=== PATIENT | female | born 1960 | race Two or more races ===

== ENCOUNTER 2024-10-31 06:40 | Emergency (ER) | payer MEDICAID ==
[~2024-10-31] VITALS: Ht 157.5 cm; Wt 89.5 kg
[2024-10-31 07:11] VITALS: BP 139/57; PULSE 83; RESP 18; TEMP 97.7; O2SAT 94
--- NOTE | 2024-10-31 07:21 | ED.PDOC ---
Phillip. trauma (HPI) HPI Comments A 64-YEAR-OLD FEMALE PRESENTS WITH A CHIEF COMPLAINT OF NECK PAIN AND CHEST WALL PAIN S/P FALL. PATIENT STATES THAT SHE FELL ON SUNDAY (10/28/2024) AND FELL BACKWARDS WITH HER CHIN HITTING HER STERNUM AND HER NECK HITTING THE FLOOR. PATIENT DENIES ANY LOC. PATIENT REPORTS THAT HER PAIN IS LOCALIZED TO HER CERVICAL/THORACIC SPINE, AND HER STERNAL REGION. NO BRUISING NOTED. PATIENT DENIES ANY FEVER, HEADACHE, SOB, ABDOMINAL PAIN, CHEST PAIN, OR COUGH. NO OTHER SYMPTOMS OR MODIFYING FACTORS PRESENT AT THIS TIME. Chief Complaint: Fall Injury Time Seen by MD: 07:14 Reviewed notes: Medications, Allergies Home Meds Active Scripts Methocarbamol (Methocarbamol) 750 Mg Tab, 750 MG PO BID, #20 TAB Prov:LESLY RAO 10/31/24 Ibuprofen (Ibuprofen) 800 Mg Tab, 1 TAB PO TID, #30 TAB Prov:ELSLY RAO 10/31/24 Information Source: Patient Mode of Arrival: Ambulatory Brought in by: AMBULATORY Severity: Moderate Timing: Days Duration: Since onset Prehospital treatment: None Location: Chest, Neck (T-SPINE AND C-SPINE) Location of laceration: None Mechanism: Fall Associated signs and symtoms: None Past Medical History PAST MEDICAL HISTORY: Denies Surgical History: Denies all surgeries BARGE PILOT History: Denies all BARGE PILOT Hx Family History Family History: Reviewed,noncontributory to illness Social History Smoker: Non-Smoker Alcohol: Denies ETOH Use Drugs: Denies Drug Use Lives In: Home Constitutional: denies: chills, diaphoresis, fatigue, fever, malaise, sweats, weakness, others EENTM: denies: blurred vision, double vision, ear bleeding, ear discharge, ear drainage, ear pain, ear ringing, eye pain, eye redness, hearing loss, mouth pain, mouth swelling, nasal discharge, nose bleeding, nose congestion, nose pain, photophobia, tearing, throat pain, throat swelling, voice changes, others Respiratory: denies: cough, hemoptysis, orthopnea, SOB at rest, shortness of breath, SOB with excertion, stridor, wheezing, others Cardiovascular: denies: chest pain, dizzy spells, diaphoresis, Dyspnea on exertion, edema, irregular heart beat, left arm pain, lightheadedness, palpitations, PND, syncope, others Gastrointestinal: denies: abdomen distended, abdominal pain, blood streaked bowels, constipated, diarrhea, dysphagia, difficulty swallowing, hematemesis, melena, nausea, poor appetite, poor fluid intake, rectal bleeding, rectal pain, vomiting, others Genitourinary: denies: abnormal vagina bleeding, burning, dyspareunia, dysuria, flank pain, frequency, hematuria, incontinence, pain, , vagina discharge, urgency, others Neurological: denies: dizziness, fainting, headache, left sided numbness, left sided weakness, numbness, paresthesia, pre-existing deficit, right sided numbness, right sided weakness, seizure, speech problems, tingling, tremors, weakness, others Musculoskeletal: reports: muscle pain, neck pain; denies: back pain, gout, joint pain, joint swelling, muscle stiffness, others Integumetry: denies: bruises, change in color, change in hair/nails, dryness, laceration, lesions, lumps, rash, wounds, others Allergic/Immunocompromised: denies: Difficulty Healing, Frequent Infections, Hives, Itching, others Hematologic/Lymphatic: denies: anemia, blood clots, easy bleeding, easy bruising, swollen glands, others Endocrine: denies: excessive hunger, excessive sweating, excessive thirst, excessive urination, flushing, intolerance to cold, intolerance to heat, unexplained weight gain, unexplained weight loss, others Psychiatric: denies: anxiety, bipolar disorder, depression, hopeless, panic d isorder, schizophrenia, sleepless, suicidal, others All Other Systems: Reviewed and Negative Physical Exam General Appearance: No Apparent Distress, Normal HEENT: Normal ENT Inspection, PERRL/EOMI, Pharynx Normal, TMs Normal Neck: Full Range of Motion, Normal Inspection, Supple, Tender Lateral (TENDERNESS AND MUSCLE SPAS ON POSTERIOR NECK, NO BONY TENDERNESS, SWELLING AND DEFORMITY. ) Respiratory: Lungs Clear, No Accessory Muscle Use, No Respiratory Distress, Normal Breath Sounds, Other (TENDERNESS UPPER CHEST WALL, NO BONY TENDERNESS, SWELLING AND DEFORMITY. ) Cardiovascular: No Edema, No JVD, No Murmur, No Gallop, Normal Peripheral Pulses, Regular Rate/Rhythm Breast Exam: Deferred Gastrointestinal: No Organomegaly, Non Tender, No Pulsatile Mass, Normal Bowel Sounds, Soft Genitalia: Deferred Pelvic: Deferred Rectal: Deferred Extremities: No calf tenderness, Normal capillary refill, Normal inspection, Normal range of motion, Non-tender, No pedal edema Musculoskeletal : Location: Bilateral Extremity Location: Back Apperance: Tenderness (AND MUSCLE SPASM ON UPPER BACK, NO BONY TENDERNESS, SWELLING AND DEFORMITY. ) Neurologic: Alert, pillow cleaner II-XII nml as Tested, No Motor Deficits, Normal Affect, Normal Mood, No Sensory Deficits Cerebellar Function: Normal Reflexes: Normal Skin: Dry, Normal Color, Warm Peripheral Pulses: 2+ carotid (R), 2+ carotid (L), 2+ Radial (R), 2+ Radial (L) Lymphatic: No Adenopathy Was a procedure done? Was a procedure done?: No Differential Diagnosis Multiple Trauma: Fractures, Spine Injury, Abrasions, Contusion Neck Injury: Cervical Muscle Spasm X-Ray, Labs, Meds, VS Vital Signs Date Time Temp Pulse Resp B/P (MAP) Pulse Ox O2 Delivery O2 Flow Rate FiO2 10/31/24 07:11 97.7 83 18 139/57 (84) 94 97.7 10/31/24 07:11 83 18 94 Room Air 10/31/24 07:00 97.7 83 18 139/57 (84) 94 [facility] [id number]: [id number] : 1960 LOC: ER ROOM / BED: / AGE / SEX: 64 / F ADM STATUS: REG ER SERVICE [id number] ORDERING PHYSICIAN: LESLY RAO PROCEDURE(s): CXR2 - CHEST TWO VIEWS ROUTINE REASON: FALL ORDER NUMBER(s): [id number], ACCESSION NUMBER(s): [id number] CHEST TWO VIEWS ROUTINE CLINICAL HISTORY: FALL COMPARISON: None TECHNIQUE: Frontal and lateral view of the chest was obtained FINDINGS: Lines and Tubes: None Lungs: No focal consolidation. Pleura: No effusion. No pneumothorax. Cardiomediastinal contours: Unremarkable Bones: No acute osseous abnormality. IMPRESSION: 1. No acute cardiopulmonary disease. ATED BY: JAZMYN DESOUZA MD DICTATED DATE/TIME: 10/31/24 9950 SIGNED BY: JAZMYN DESOUZA MD SIGNED DATE/TIME: 10/31/24 0755 CC: X-Ray, Labs, Meds, VS Comment EXTERNAL MEDICAL RECORDS REVIEWED: [NONE] INDEPENDENT HISTORIANS: [NONE] SOCIAL DETERMINANTS OF HEALTH: [NONE] LABS ORDERED: NONE REVIEWED AND INTERPRETED RESULTS: NONE IMAGING ORDERED: CHEST X-RAY, CERVICAL SPINE X-RAY, THORACIC SPINE X-RAY TREATMENTS ORDERED: NONE PROCEDURES PERFORMED: NONE CRITICAL CARE TIME: NONE I HAVE DISCUSSED THE PATIENT WITH THE ATTENDING PHYSICIAN DR. APPIAH AND HE AGREES WITH THE PATIENT'S PLAN OF CARE AND DISPOSITION. GIVEN THE HISTORY AND PRESENT ILLNESS OF THE PATIENT, AFTER REVIEWING LABS, IMAGING, AND COURSE OF TREATMENT ADMINISTERED DURING THEIR ED VISIT, THERE IS LOW SUSPICION FOR RED FLAG FINDINGS. BASED ON HISTORY OF PRESENT ILLNESS, AND PHYSICAL EXAM, PATIENT WILL BE DISCHARGED HOME. DISCUSSED PLAN FOR DISCHARGE HOME WITH RX IBUPROFEN AND MUSCLE RELAXER. MEDICATION WARNINGS GIVEN. SHARED DECISION MAKING: DISCUSSED WITH PATIENT THAT THEIR WORKUP WAS NORMAL. PATIENT INSTRUCTED TO FOLLOW UP WITH PRIMARY CARE PROVIDER IN 1-2 DAYS FOR RE- EVALUATION OF SYMPTOMS. PATIENT VERBALIZES UNDERSTANDING TO RETURN TO ED FOR NEW OR WORSENING SYMPTOMS OR IF FOLLOW UP WITH PCP CANNOT BE OBTAINED. PATIENT FEELS COMFORTABLE GOING HOME AT THIS TIME. ALL QUESTIONS ADDRESSED AT TIME OF DISCHARGE. Time of 1ST Reevaluation: 08:25 Reevaluation 1ST: Improved Patient Education/Counseling: Diagnosis, Treatment, Prognosis Family Education/Counseling: Diagnosis, Treatment, Need For Follow Up Medical Screening: No EMC Exist At This Time Departure 1 Departure Time of Disposition: 08:25 Impression: Primary Impression: Cervical muscle strain Qualified Codes: S16.1XXA - Strain of muscle, fascia and tendon at neck level, initial encounter Additional Impressions: Upper back strain Qualified Codes: S29.012A - Strain of muscle and tendon of back wall of thorax, initial encounter Chest wall contusion Qualified Codes: S20.219A - Contusion of unspecified front wall of thorax, initial encounter Disposition: HOME / SELF CARE / HOMELESS Condition: Stable Additional Instructions: FOLLOW UP WITH YOUR PCP IN 1-2 DAYS, RETURN TO THE ER IF YOUR SYMPTOMS WORSEN. e-Prescriptions Methocarbamol (Methocarbamol) 750 Mg Tab 750 MG PO BID, #20 TAB Prov: LESLY RAO 10/31/24 Ibuprofen (Ibuprofen) 800 Mg Tab 1 TAB PO TID, #30 TAB Prov: LESLY RAO 10/31/24 Discharged With: Self Critical Care Note Critical Care Time?: No Stability Stability form required: No Heart Score Heart Score: Heart Score Response (Comments) Value History N/A 0 EKG N/A 0 Age N/A 0 Risk Factors N/A 0 Troponin N/A 0 Total 0 I personally scribed for LESLY RAO ([email or web address]) on 10/31/24 at 07:21. Elect ronically submitted by Michael Stanton ([email or web address]). I personally scribed for LESLY RAO ([email or web address]) on 10/31/24 at 08:16. Electro nically submitted by Michael Stanton ([email or web address]). I personally scribed for LESLY RAO ([email or web address]) on 10/31/24 at 08:23. Electronically submitted by Michael Stanton ([email or web address]). LESLY RAO Oct 31, 2024 07:21
--- NOTE | 2024-10-31 07:58 | DVH ---
XY CHEST TWO VIEWS ROUTINE CLINICAL HISTORY: FALL COMPARISON: None TECHNIQUE: Frontal and lateral view of the chest was obtained FINDINGS: Lines and Tubes: None Lungs: No focal consolidation. Pleura: No effusion. No pneumothorax. Cardiomediastinal contours: Unremarkable Bones: No acute osseous abnormality. IMPRESSION: 1. No acute cardiopulmonary disease.
--- NOTE | 2024-10-31 07:58 | DVH ---
INDICATION: FALL COMPARISON: None TECHNIQUE: 3 views of the cervical spine were obtained. FINDINGS: The cervical vertebral alignment is normal. The predental space is normal. Multilevel intervertebral disc space narrowing in the cervical spine. No acute fracture, vertebral compression deformity or aggressive osseous lesions. The imaged lung apices are unremarkable. IMPRESSION: 1. No acute fracture. 2. Multilevel cervical spondylosis.
--- NOTE | 2024-10-31 08:01 | DVH ---
INDICATION: FALL TECHNIQUE: 4 views of the thoracic spine were obtained. COMPARISON: None FINDINGS: There is no evidence of fracture, subluxation and/or dislocation. Degenerative changes of the spine. The alignment is anatomical. The paravertebral soft tissues were unremarkable. IMPRESSION: 1. Of the visualized spine, there is no evidence for fracture or subluxation.
[2024-10-31] MEDS ORDERED: METH-1182 PO (08:17)
[2024-10-31] MEDS ORDERED: IBUP-1456 PO (08:17)
== END 2024-10-31 08:23 | disposition home or self-care (01) ==
LOC: ER 06:40
DX: S16.1XXA Strain of muscle, fascia and tendon at neck level, initial encounter (principal); S29.012A Strain of muscle and tendon of back wall of thorax, initial encounter; S20.219A Contusion of unspecified front wall of thorax, initial encounter; Z79.1 Long term (current) use of non-steroidal anti-inflammatories (NSAID); W18.39XA Other fall on same level, initial encounter; Y93.89 Activity, other specified; Y92.89 Other specified places as the place of occurrence of the external cause; Y99.8 Other external cause status
CPT/HCPCS: 71046; 72040; 72070